=== PATIENT | male | born 1980 | race Caucasian/White ===

== ENCOUNTER 2017-01-09 08:52 | Emergency (ER) | payer OTHER ==
[~2017-01-09] VITALS: Ht 177.8 cm; Wt 93.0 kg
[2017-01-09] MEDS ORDERED: ZOFRAN4 M2 PO (09:17)
[2017-01-09] MEDS ORDERED: CLONIDINE HCL0.1 MG PO (09:17)
--- NOTE | 2017-01-09 09:19 | ED PSYCHIATRIC COMPLAINT ---
History of Present Illness General Chief Complaint: ETOH/Drug Related Complaint Stated Complaint: WITHDRAWL FROM OPIATES Source: patient Exam Limitations: no limitations Vital Signs & Intake/Output Vital Signs & Intake/Output Vital Signs Date Time Temp Pulse Resp B/P B/P Pulse O2 O2 Flow FiO2 Mean Ox Delivery Rate 01/09 925 98 Room Air 01/10 924 81 18 125/91 100 Room Air 01/09 0857 99.0 76 20 80/60 98 Room Air Allergies Coded Allergies: gluten (UNKNOWN 01/09/17) wheat (UNKNOWN 01/09/17) Uncoded Allergies: CATS (UNKNOWN 02/06/11) Reconcile Medications Clonidine HCl 0.1 MG TABLET 1 TAB PO TID OPIATE WITHDRAWAL Ondansetron HCl (Zofran) 4 MG TABLET 1 TAB PO Q6-8P PRN NAUSEA Triage Note: PT TO ED REQUESTING DETOX FROM PEROCET. STATES USES 15 10MG TABS DAILY. HAS TRIED TO DETOX FROM THE SAME IN THE PAST. ADMITS TO MARIJUANA USE, DENIES ANY OTHER DRUGS. LAST USED 2 10MG PERCOCETS YESTERDAY. DENIES SI/HI. PT'S BP 80/60, PT TAKEN TO ROOM 5 FOR EVAL. PT PALE, DIAPHORETIC. STATES HE BUYS PERCOCET ON THE [address]RE[address]. Triage Nurses Notes Reviewed? yes Onset: Gradual Duration: constant Timing: recent history Severity: moderate Severity Numbers: 5 HPI: Patient is a 36-year-old male with a past medical history of opiate dependency who presents to emergency room with requests OF opiate detoxification patient states that he has been using opiates of pill form for approximately 10 years and which he buys this from his friends Patient last used Percocet yesterday patient also admits to smoking marijuana on occasion Patient currently lives in a private residence by himself and is employed. Patient denies any suicidal or homicidal ideation. Patient does state that he did call [facility] course they advised patient to present to the emergency room. Patient denies any visual auditory hallucinations. Patient currently admits to feeling anxious Patient denies any fever chills abdominal pain nausea vomiting. Patient denies any other illicit drug use. (BRAULIO REYNA,ABELARDO) Past History Travel History Traveled to [place] past 21 day No Medical History Any Pertinent Medical History? see below for history Surgical History Surgical History: non-contributory Psychosocial History Who do you live with Friend Services at Home None What is your primary language Sami Tobacco Use: Never used ETOH Use: denies use Illicit Drug Use: marijuana, percocet Family History Hx Contributory? No (ABELARDO BRADLEY) Review of Systems Review of Systems Constitutional: Reports: no symptoms. EENTM: Reports: no symptoms. Respiratory: Reports: no symptoms. Cardiovascular: Reports: no symptoms. GI: Reports: no symptoms. Genitourinary: Reports: no symptoms. Musculoskeletal: Reports: no symptoms. Skin: Reports: no symptoms. Neurological/Psychological: Reports: see HPI, anxiety. Hematologic/Endocrine: Reports: no symptoms. Immunologic/Allergic: Reports: no symptoms. All Other Systems: Reviewed and Negative (ABELARDO BRADLEY) Physical Exam Physical Exam General Appearance: anxious Neurological/Psychiatric: no motor/sensory deficits, anxious Appearance/Memory/Insight: appropriate appearance, appropriate insight, denies illness Behavoir/Eye Contact/Speech: cooperative, normal speech, good eye contact Thoughts/Hallucinations: no apparent hallucination Comments: HEENT: Normal EENT exam, Neck: Supple, no lymphadenopathy, normal range of motion without pain or tenderness Back: Nontender, no CVA tenderness. Cardiovascular: Regular rate and rhythms no murmurs rubs or gallops, normal JVP Respiratory: Chest nontender. No respiratory distress.breath sounds clear to auscultation bilaterally Abdomen: Soft, nontender nondistended, no appreciable organomegaly. Normal bowel sounds. No ascites Extremity: No edema, no calf tenderness to palpation, normal and equal pulses. Neuro: Alert oriented x3, motor sensory normal, Skin: No appreciable rash on exposed skin, skin is warm and dry. Psych: Mood and affect is normal, memory and judgment is normal. SAD PERSONS Done? patient not suicidal (ABELARDO BRADLEY) Progress Differential Diagnosis: drug intoxication, drug overdose, drug withdrawal, electrolyte abnormality, encephalitis, hypoglycemia, hypothyroidism, IC hem/mass /tumor, meningitis Plan of Care: Patient currently denies any suicide ideation or homicidal ideation. Patient was given a copy of inpatient detox programs for opiate dependency which I strongly advised patient to call as soon as he is discharged from the emergency room and patient states that "I will definitely do this". Patient was administered prescriptions of clonidine and Zofran for withdrawal symptoms. Patient also was strongly advised to follow-up with [facility] for outpatient care (ABELARDO BRADLEY) Departure Departure Disposition: HOME OR SELF CARE Condition: Stable Clinical Impression Primary Impression: Opiate addiction Referrals: DENNYS CROUCH DO (PCP/Family) Additional Instructions: As discussed please call the list of inpatient detoxification programs provided to YOU IN the emergency room today to be evaluated for further evaluation and treatment of your symptoms. Begin the prescription and clonidine for your WITHDRAWAL symptoms AND BEGIN THE prescription of Zofran for nausea, these prescriptions are waiting at [place] [facility]. If symptoms worsen return to emergency room. Departure Forms: Customer Survey General Discharge Information Prescriptions: Current Visit Scripts Clonidine HCl 1 TAB PO TID #9 TAB Ondansetron HCl (Zofran) 1 TAB PO Q6-8P PRN NAUSEA #10 TAB (ABELARDO BRADLEY) PA/TRADING MANAGER Co-Sign Statement Statement: ED Attending supervision documentation- I saw and evaluated the patient. I have also reviewed all the pertinent lab results and diagnostic results. I agree with the findings and the plan of care as documented in the PA's/TRADING MANAGER's documentation. x I have reviewed the ED Record and agree with the PA's/TRADING MANAGER's documentation. [] Additions or exceptions (if any) to the PAs/TRADING MANAGER's note and plan are summarized below: [] (BREANA VIDALES,BOAZ)
[2017-01-09 09:24] VITALS: BP 125/91
== END 2017-01-09 09:26 ==
LOC: ERH 08:52
DX: F11.20 Opioid dependence, uncomplicated (principal)